=== PATIENT | female | born 1985 | race American Indian/Alaskan Native ===

== ENCOUNTER 2017-08-15 01:20 | Inpatient (IN) | payer BC ==
--- NOTE | 2017-08-15 01:59 | ED PDOC ---
Arrival/HPI - General Chief Complaint: Lower Extremity Problem/Injury Time Seen by Provider: 08/15/17 01:43 Historian: Patient - History of Present Illness Narrative History of Present Illness (Text): 08/15/17 01:52 32 year old female, with no significant past medical history, presents to the emergency department sent by [facility] for diagnosis of blood clot in the right calf. Patient report a history of right calf pain that began 5 days and went in for evaluation. Ultrasound studies on 08/14/17 showed positive results of blood clot. Patient reports a family history of clot bloods. Denies recent travel, any fever, chills, chest pain, shortness of breath , nausea, vomiting, diarrhea, urinary symptoms, back pain, neck pain, headache, dizziness, or any other complaints. Time/Duration: Other (5 days) Symptom Onset: Sudden Symptom Course: Unchanged Activities at Onset: Light Context: Home Past Medical History - Provider Review Nursing Documentation Reviewed: Yes - Psychiatric Hx Substance Use: No Family/Social History - Physician Review Nursing Documentation Reviewed: Yes Family/Social History: Blood Clots Smoking Status: Never Smoked Hx Alcohol Use: No Hx Substance Use: No Allergies/Home Meds Allergies/Adverse Reactions: Allergies No Known Allergies Allergy (Verified 08/15/17 01:33) Home Medications: Home Meds Medication Instructions Recorded Confirmed No Known Home Med 08/15/17 08/15/17 Review of Systems - Physician Review All systems were reviewed & negative as marked: Yes - Review of Systems Constitutional: absent: Fevers, Other (Chills) Respiratory: absent: SOB Cardiovascular: absent: Chest Pain Gastrointestinal: absent: Diarrhea, Nausea, Vomiting Genitourinary Female: absent: Dysuria, Frequency, Hematuria Musculoskeletal: absent: Back Pain, Neck Pain Neurological: absent: Headache, Dizziness Physical Exam Vital Signs Reviewed: Yes Vital Signs Temp Pulse Resp BP Pulse Ox 08/15/17 04:24 76 18 143/88 100 08/15/17 01:34 98.7 F 89 17 182/100 H 98 Temperature: Afebrile Blood Pressure: Hypertensive Pulse: Regular Respiratory Rate: Normal Appearance: Positive for: Well-Appearing, Non-Toxic, Comfortable Pain Distress: None Mental Status: Positive for: Alert and Oriented X 3 - Systems Exam Head: Present: Atraumatic, Normocephalic Pupils: Present: PERRL Extroacular Muscles: Present: EOMI Conjunctiva: Present: Normal Mouth: Present: Moist Mucous Membranes Neck: Present: Normal Range of Motion Respiratory/Chest: Present: Clear to Auscultation, Good Air Exchange. No: Respiratory Distress, Accessory Muscle Use Cardiovascular: Present: Regular Rate and Rhythm, Normal S1, S2. No: Murmurs Abdomen: Present: Normal Bowel Sounds. No: Tenderness, Distention, Peritoneal Signs Back: Present: Normal Inspection Upper Extremity: Present: Normal Inspection. No: Cyanosis, Edema Lower Extremity: Present: CALF TENDERNESS (Tender to palpation on right calf with some discomfort. ). No: Edema Neurological: Present: GCS=15, CN II-XII Intact, Speech Normal Skin: Present: Warm, Dry, Normal Color. No: Rashes Psychiatric: Present: Alert, Oriented x 3, Normal Insight, Normal Concentration Medical Decision Making ED Course and Treatment: 08/15/17 01:52 Impression: 32 year old female presents for evaluation of right DVT diagnosis at [facility] 08/14/16 due to 5 days of right calf pain. Plan: -- EKG -- Labs -- Duplex Lower Extrem Vein US -- Reassess and disposition Progress Notes: 08/15/17 03:43 Duplex Lower Extremity US: DVT of lower right leg EKG shows NSR at 75 BPM with Sinus arrhythmia. Non-specific ST/T changes. Interpreted by me. 08/15/17 03:47 Rectal exam, guaiac negative. - Lab Interpretations Lab Results: 08/15/17 02:05 08/15/17 02:05 Lab Results 08/15/17 02:05: WBC 12.5 H, RBC 4.49, Hgb 8.5 L, Hct 29.9 L, MCV 66.6 L, MCH 18.9 L, MCHC 28.4 L, RDW 17.3 H, Plt Count 320, MPV 10.2 08/15/17 02:05: Sodium 138, Potassium 3.2 L, Chloride 102, Carbon Dioxide 26, Anion Gap 13, BUN 12, Creatinine 0.7, Est GFR ( Amer) > 60, Est GFR (Non- Af Amer) > 60, Random Glucose 91, Calcium 9.4, Total Bilirubin 0.5, AST 32, ALT 29, Alkaline Phosphatase 85, Total Protein 7.8, Albumin 4.2, Globulin 3.7, Albumin/Globulin Ratio 1.1 08/15/17 02:05: PT 11.8, INR 1.03, APTT 23.9 L I have reviewed the lab results: Yes - RAD Interpretation Radiology Orders: 08/15/17 01:56 DUPLEX LOWER EXTRM VEIN BILAT [US] Stat - EKG Interpretation Interpreted by ED Physician: Yes Type: 12 lead EKG - Medication Orders Current Medication Orders: Heparin Sodium/Sodium Chloride (Heparin 57816 Units/250ml 1/2 Normal Saline) 25 ,000 units in 250 mls @ 14.094 mls/hr IV .[id number] PRN; Protocol; 18 UNITS/KG/HR PRN Reason: ADJUST RATE PER PROTOCOL Last Titration: 08/15/17 13:14 Dose: 15.45 units/kg/hr, 12.1 mls/hr Titration Intervention Document 08/15/17 13:14 [facility]Rec: 08/15/17 13:16 [id number]) Titration Intake Titration Intake 50 Cumulative Intake 50 Cumulative Intake (Rx) 50 Waste Amount 0 Container Volume 200 Titration Dosing Titration Dose 15.45 IV Rate 12.1 Intake/Decrease Decreased Cumulative Dose 5000 Discontinued Medications Heparin Sodium (Porcine) (Heparin) 5,000 units IV ONCE STA PRN Reason: Protocol Stop: 08/15/17 03:40 Last Admin: 08/15/17 04:09 Dose: 5,000 units eMAR Start Stop Document 08/15/17 04:09 RD (Rec: 08/15/17 04:09 [facility]) Intravenous Solution Start Date 08/15/17 Start Time 04:09 End Date 08/15/17 End time 04:11 Total Infusion Time 2 Potassium Chloride (K-Dur 20 Meq Er Tab) 20 meq PO STAT STA Stop: 08/15/17 03:25 Last Admin: 08/15/17 03:35 Dose: 20 meq - Scribe Statement The provider has reviewed the documentation as recorded by the Sravan Saunders Provider Scribe Attestation: All medical record entries made by the Sumaibpilar were at my direction and personally dictated by me. I have reviewed the chart and agree that the record accurately reflects my personal performance of the history, physical exam, medical decision making, and the department course for this patient. I have also personally directed, reviewed, and agree with the discharge instructions and disposition. Disposition/Present on Arrival - Present on Arrival Any Indicators Present on Arrival: No History of DVT/PE: No History of Uncontrolled Diabetes: No Urinary Catheter: No History of Decub. Ulcer: No History Surgical Site Infection Following: None - Disposition Have Diagnosis and Disposition been Completed?: Yes Diagnosis: Right leg DVT Disposition: HOSPITALIZED Disposition Time: 03:40 Condition: STABLE
[2017-08-15 02:22] LABS: HEMOGLOBIN 8.5 g/dL (12.0-16.0); MEAN CELL VOLUME 66.6 fl (80.0-105.0); MEAN CORPUSCULAR HEMOGLOBIN 18.9 pg (25.0-35.0); MEAN CORPUSCULAR HGB CONC 28.4 g/dl (31.0-37.0); MEAN PLATELET VOLUME 10.2 fl (7.0-11.0); RBC 4.49 10^6/uL (3.5-6.1); RED CELL DISTRIBUTION WIDTH 17.3 % (11.5-14.5); WHITE BLOOD COUNT 12.5 10^3/ul (4.5-11.0)
[2017-08-15 02:42] LABS: INR 1.03 (0.93-1.08); PARTIAL THROMBOPLASTIN TIME 23.9 Seconds (25.1-36.5); PROTHROMBIN TIME 11.8 SECONDS (9.4-12.5)
[2017-08-15 02:54] LABS: ALB/GLOB RATIO 1.1 (1.1-1.8); ALBUMIN 4.2 g/dL (3.0-4.8); ALT/SGPT 29 U/L (7-56); AST/SGOT 32 U/L (14-36); BLOOD UREA NITROGEN 12 mg/dL (7-21); CALCIUM 9.4 mg/dL (8.4-10.5); GFR AFRICAN-AMERICAN > 60; GFR NON-AFRICAN AMERICAN > 60
[2017-08-15] MEDS ORDERED: Potassium Chloride 20 mEq ER Tab PO STA (03:24)
[2017-08-15] MEDS ORDERED: Heparin25000 units/250ml 1/2NS 25,000 UNITS/250 ML BAG IV PRN (03:39)
[2017-08-15 04:00] VITALS: BMI 29.3
[2017-08-15] MEDS: Heparin 25,000units in 1/2NS /250 ML BAG IV PRN ×2 (04:17→22:25)
--- NOTE | 2017-08-15 10:27 | CARD ---
APPROVED REPORT EKG Measurement Heart [id number] <Conclusion> Normal sinus rhythm with sinus arrhythmia QS V 1 - 2, possible septal MA age unknown No prior ECG
--- NOTE | 2017-08-15 13:42 | US ---
HISTORY: Leg pain and swelling. Evaluate for DVT PHYSICIAN(S): Pieter Coughlin MD. TECHNIQUE: Duplex sonography and color-flow Doppler with graded compression were used to evaluate the deep venous systems of both lower extremities. FINDINGS: There is isolated hypoechoic occlusive thrombus in the right peroneal veins. The right posterior tibial veins, right popliteal vein, right femoral vein, and right common femoral vein are patent and compressible. There is no sonographic evidence for deep venous thrombosis in the visualized segments of left lower extremity IMPRESSION: Isolated right tibial DVT. A followup ultrasound in 7-10 days is recommended
--- NOTE | 2017-08-15 13:44 | CP.PCM.CON ---
History of Present Illness - History of Present Illness History of Present Illness: Abhijeet Livingston D.O. PGY-2, Internal Medicine Resident, Hem/Onc 32 year old female with no PMH who presents for pain in her right leg for 5-6 days. Patient thought it was originally a pulled muscle as the pain was dull and achy, 6/10 at its worst, constant, and presented to [facility] for evaluation and had a doppler which showed a right peroneal vein DVT. 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 Patient's mother, grandmother, two sisters, and all her aunts all have had multiple clotting issues and are on anticoagulation. Patient does not know the etiology at this time. Otherwise patient denies any long trips by car, flights, sick contacts, or any other periods of immobility. Patient denies any smoking history. Review of Systems - Review of Systems All systems: reviewed and no additional remarkable complaints except - Musculoskeletal Musculoskeletal: Other (right leg pain) Past Patient History - Past Social History Smoking Status: Never Smoked - CARDIAC Hx Cardiac Disorders: No - PULMONARY Hx Respiratory Disorders: No - NEUROLOGICAL Hx Neurological Disorder: No - HEENT Hx HEENT Problems: No - ENDOCRINE/METABOLIC Hx Endocrine Disorders: No - HEMATOLOGICAL/ONCOLOGICAL Hx Blood Disorders: No - INTEGUMENTARY Hx Dermatological Problems: No - MUSCULOSKELETAL/RHEUMATOLOGICAL Hx Musculoskeletal Disorders: No Hx Falls: No - GASTROINTESTINAL Hx Gastrointestinal Disorders: No - GENITOURINARY/GYNECOLOGICAL Hx Genitourinary Disorders: No - PSYCHIATRIC Hx Psychophysiologic Disorder: No - SURGICAL HISTORY Hx Surgeries: No Meds Allergies/Adverse Reactions: Allergies Allergy/AdvReac Type Severity Reaction Status Date / Time No Known Allergies Allergy Verified 08/15/17 01:33 - Medications Medications: Current Medications Heparin Sodium/Sodium Chloride (Heparin 37343 Units/250ml 1/2 Normal Saline) 25 ,000 units in 250 mls @ 14.094 mls/hr IV .[id number] PRN; Protocol; 18 UNITS/KG/HR PRN Reason: ADJUST RATE PER PROTOCOL Last Titration: 08/15/17 13:14 Dose: 15.45 units/kg/hr, 12.1 mls/hr Physical Exam - Constitutional Appears: Non-toxic, No Acute Distress - Head Exam Head Exam: ATRAUMATIC, NORMOCEPHALIC - Eye Exam Eye Exam: EOMI, PERRL - ENT Exam ENT Exam: Mucous Membranes Moist - Neck Exam Neck exam: Positive for: Normal Inspection - Respiratory Exam Respiratory Exam: Clear to Auscultation Bilateral. absent: Rhonchi, Wheezes - Cardiovascular Exam Cardiovascular Exam: RRR, +S1, +S2. absent: Gallop, Rubs - GI/Abdominal Exam GI & Abdominal Exam: Normal Bowel Sounds, Soft. absent: Distended, Tenderness - Extremities Exam Additional comments: right calf tenderness, some swelling - Back Exam Back exam: absent: CVA tenderness (L), CVA tenderness (R), paraspinal tenderness - Neurological Exam Neurological exam: Alert, CN II-XII Intact, Oriented x3 - Psychiatric Exam Psychiatric exam: Normal Affect, Normal Mood - Skin Skin Exam: Dry, Warm Results - Vital Signs Recent Vital Signs: Last Vital Signs Temp 97.3 F L 08/15/17 07:30 Pulse 78 08/15/17 07:30 Resp 16 08/15/17 07:30 BP 110/73 08/15/17 07:30 Pulse Ox 98 08/15/17 07:30 - Labs Result Diagrams: 08/15/17 02:05 08/15/17 02:05 Labs: Laboratory Results - last 24 hr 08/15/17 11:07 APTT 133.0 H* Assessment & Plan - Assessment and Plan (Free Text) Assessment: 32 year old female with no PMH who presents for pain in her right leg for 5-6 days and was found to have a right leg DVT Plan: Unprovoked right peroneal mid-calf DVT On heparin gtt Work up for hypercoagulability ordered although will be difficult to interpret given the fact that heparin already Left leg negative IR Dr. Coughlin consulted for evaluation Discussed with patient at length the likelihood of an inherited hypercoagulable state and how she should get in contact with all of her family members in regards to this to try and see if anyone in the family, of the multiple ones with clotting, have been given an official diagnosis Also discussed anticoagulation with patient and how it is likely she will have to be on it for life same as her family members All questions welcomed and answered Will follow Discussed with attending physician - Date & Time Date: 08/15/17 Time: 07:40
--- NOTE | 2017-08-16 01:32 | HP ---
CHIEF COMPLAINT: Lower extremity pain. HISTORY OF PRESENT ILLNESS: Ms. Shiloh Neff is 32-year-old female with nonsignificant past medical history, came to the Emergency Room Department, sent by [facility] for diagnosis of blood clot in the right calf. Patient reports a history of right calf pain that began five days ago, went for evaluation. Ultrasound study done on 08/14/2017 showed positive result for blood clot. Patient reports family history of blood clots. Denies recent travel, fever, chills, smoking and no history of oral contraceptive pills. No shortness of breath, nausea, vomiting, diarrhea, fever, back pain, neck pain, headache, dizziness, or any other complaints. FAMILY HISTORY: Father and mother noncontributory. ALLERGIES: PATIENT IS NOT ALLERGIC WITH ANY MEDICATION. HOME MEDICATIONS: Denied. REVIEW OF SYSTEMS: The patient is seen and examined at the bedside, looking comfortable. No nausea, vomiting, or diarrhea. Still has swelling of the leg. No fever. No chills. No dysuria. No frequency. No hematuria. No back pain. PHYSICAL EXAMINATION: VITAL SIGNS: Temperature 98.7, pulse 89, respiratory rate 17, blood pressure 182/100, pulse oximetry 98. HEENT: Head: Normocephalic, atraumatic. Eyes: PERRLA. Extraocular muscles intact. Conjunctivae clear. Nose: Patent. Mucous membranes moist. NECK: Supple. No carotid bruits. No JVD or thyromegaly. CHEST: Bilaterally symmetrical. HEART: S1, S2 positive. LUNGS: Clear to auscultation. ABDOMEN: Soft. Bowel sounds present. No organomegaly. EXTREMITIES: Tender to palpation of the right calf with some discomfort. NEUROLOGIC: Patient is awake and alert. Moving all four extremities. No focal deficit, oriented x3. LABORATORY DATA: White blood cells 7.5, hemoglobin 8.5, hematocrit 29.9, platelets 320. Sodium 132, potassium 3.2. BUN 12, creatinine 0.7, glucose 91. ASSESSMENT AND PLAN: Ms. Shiloh Neff is a 32-year-old lady with leukocytosis, anemia, hypokalemia, has right calf deep vein thrombosis. Started on heparin drip. We did ultrasound in the hospital according to Dr. Pieter Coughlin, showed a right tibial deep vein thrombosis. A followup ultrasound in 7 to 10 days is recommended. Hematologic consult called with Dr. Schulz to work on that coagulopathy. Patient's mother had blood clot and had multiple pulmonary embolisms and is on chronic anticoagulation. Grandmother, two sisters, and all her aunts all have had multiple clotting issues and are on anticoagulation. Patient denies any long trips by car, flight, sick contact, or any periods of immobility. Workup of hypercoagulability ordered. Left leg negative. Appreciated the deli/bakery associate's input. We will try to get history from the family members. Right now, continue gastric prophylaxis. We will follow up. Suellen Ornelas MD
[2017-08-16 07:59] VITALS: O2SAT 100
--- NOTE | 2017-08-16 13:28 | NM ---
COMPARISON: None TECHNIQUE: 34.0 mCi technetium 99-m DTPA aerosol. 3.4 mCI technetium 99-m MAA administered intravenously. FINDINGS: VENTILATION COMPONENT: Normal. PERFUSION COMPONENT: Heterogeneous distribution of radionuclide. No geographic, segmental, lobar abnormalities apparent on the present examination. IMPRESSION: Low probability ventilation perfusion scan for pulmonary embolism.
--- NOTE | 2017-08-16 15:22 | CP.PCM.PN ---
Subjective - Date & Time of Evaluation Date of Evaluation: 08/16/17 Time of Evaluation: 07:55 - Subjective Subjective: Abhijeet Livingston D.O. PGY-2, Internal Medicine Resident, Hem/Onc 32 year old female with no PMH who presents for pain in her right leg for 5-6 days and was found to have a right tibial DVT. Patient was seen and examined at bedside. Patient states that she is doing ok right now and her leg pain is improved. Mother at bedside relates how she and her mother and another side of the family all have a clotting disorder and are on lifetime anticoagulation. No overnight events. Objective - Vital Signs/Intake and Output Vital Signs (last 24 hours): Temp Pulse Resp BP Pulse Ox 97.8 F 79 18 136/84 100 08/16/17 07:58 08/16/17 07:58 08/16/17 07:58 08/16/17 07:58 08/16/17 07:58 Intake and Output: 08/16/17 08/16/17 06:59 18:59 Intake Total 1490 480 Balance 1490 480 - Medications Medications: Current Medications Apixaban (Eliquis) 10 mg PO BID ELISABETH PRN Reason: Protocol Stop: 08/19/17 10:01 Last Admin: 08/16/17 12:59 Dose: 10 mg - Labs Labs: PT 11.8 SECONDS (9.4-12.5) 08/15/17 02:05 INR 1.03 (0.93-1.08) 08/15/17 02:05 APTT 74.4 Seconds (25.1-36.5) H 08/16/17 06:45 - Constitutional Appears: Non-toxic, No Acute Distress - Head Exam Head Exam: ATRAUMATIC, NORMOCEPHALIC - Eye Exam Eye Exam: EOMI, PERRL - ENT Exam ENT Exam: Mucous Membranes Moist - Neck Exam Neck exam: Positive for: Normal Inspection - Respiratory Exam Respiratory Exam: Clear to Auscultation Bilateral. absent: Rhonchi, Wheezes - Cardiovascular Exam Cardiovascular Exam: RRR, +S1, +S2. absent: Gallop, Rubs - GI/Abdominal Exam GI & Abdominal Exam: Normal Bowel Sounds, Soft. absent: Distended, Tenderness - Extremities Exam Additional comments: right calf tenderness, some swelling - Back Exam Back exam: absent: CVA tenderness (L), CVA tenderness (R), paraspinal tenderness - Neurological Exam Neurological exam: Alert, CN II-XII Intact, Oriented x3 - Psychiatric Exam Psychiatric exam: Normal Affect, Normal Mood - Skin Skin Exam: Dry, Warm Assessment and Plan - Assessment and Plan (Free Text) Assessment: 32 year old female with no PMH who presents for pain in her right leg for 5-6 days and was found to have a right tibial DVT. Plan: Unprovoked right tibial DVT Transitioned from heparin gtt to eliquis Will need 7 days at 10mg BID Discussed with patient Questions welcomed and answered to her satisfaction Family at bedside Discussed with attending physician
--- NOTE | 2017-08-16 18:53 | US ---
HISTORY: R/o malignancy, GN COMPARISON: None. TECHNIQUE: Grayscale imaging was performed. FINDINGS: LIVER: Measures 15.0 cm. There is diffuse increased echogenicity of the liver parenchyma. No mass. No intrahepatic bile duct dilatation. GALLBLADDER: There are no gallstones, wall thickening or pericholecystic fluid. The sonographic Weldon's sign is negative. COMMON BILE DUCT: Measures 3.2 mm. No stones. No dilatation. PANCREAS: Unremarkable as visualized. No mass. No ductal dilatation. RIGHT KIDNEY: Measures 11.2cm. Normal echogenicity. No calculus, mass, or hydronephrosis. LEFT KIDNEY: Measures 11.4cm. Normal echogenicity. No calculus, mass, or hydronephrosis. SPLEEN: Normal in size and contour. No mass. AORTA: No aneurysmal dilatation. IVC: Unremarkable. OTHER FINDINGS: None. IMPRESSION: Fatty liver. No evidence of cholelithiasis.
--- NOTE | 2017-08-16 18:54 | US ---
HISTORY: R/o malignancy COMPARISON: None available. TECHNIQUE: Transabdominal pelvic ultrasound was performed. FINDINGS: UTERUS: Measures 10.0 x 4.3 x 5.3 cm. Anteverted, normal in size and appearance. No fibroid or other mass lesion seen. ENDOMETRIUM: Measures 3.0 mm in diameter. Unremarkable. CERVIX: No cervical abnormality identified. RIGHT OVARY: Measures 3.2 x 2.2 x 2.7 cm. No solid mass. Normal flow. LEFT OVARY: Measures 3.7 x 3.5 x 3.0 cm. No solid mass. Normal flow. There is a 2.3 cm simple cyst in the left ovary. FREE FLUID: No significant free fluid noted. OTHER FINDINGS: None. IMPRESSION: Unremarkable pelvic ultrasound.
[2017-08-16 22:15] VITALS: RESP 16; TEMP 97.4
--- NOTE | 2017-08-17 05:29 | PN ---
DATE: SUBJECTIVE: The patient seen and examined at the bedside, looking comfortable, leg pain is better. No nausea, vomiting or diarrhea. No hematuria or hematochezia. No headache. No dizziness. No chest pain or palpitation. No fever. No chills. PHYSICAL EXAMINATION: VITAL SIGNS: Temperature 97.8, pulse 79, respiratory rate 18, blood pressure 136/84, pulse oximetry 100%. HEENT: Head normocephalic, atraumatic. Eyes, PERRLA. Extraocular movements intact. Conjunctivae clear. Nose patent. Mucous membranes are moist. NECK: Supple. No carotid bruits. No JVD or thyromegaly. CHEST: Bilaterally symmetrical. HEART: S1 and S2 positive. LUNGS: Clear to auscultation. ABDOMEN: Soft. Bowel sounds are present. No organomegaly. EXTREMITIES: No edema. No cyanosis. NEUROLOGIC: The patient is awake and alert. Moving all 4 extremities with no focal deficit. MEDICATIONS: Eliquis 10 mg b.i.d. LABORATORY DATA: White blood cells 12.5, hemoglobin 8.5, hematocrit 29.9, platelets 320. Sodium 138, potassium 3.2, BUN 12, creatinine 0.7. Liver function test are within normal limits. Immunology was still pending. ASSESSMENT AND PLAN: Ms. Shiloh Neff is a 32-year-old lady with leukocytosis, anemia, hypokalemia, replaced. We will do anemia workup. pelvic and abdominal ultrasound unremarkable. No on low probabilities. The patient came with the right leg pain for 5 to 6 days, found to have a right tibial deep venous thrombosis, seen by canning machine operator . . No significant past medical history. The patient was on heparin. Hematology transitioned from heparin to Eliquis. Length of time discussion done with the patient. We will repeat labs. Gastrointestinal and deep venous thrombosis prophylaxis. We will follow up. Suellen Ornelas MD
[2017-08-17 07:16] LABS: HEMOGLOBIN 8.2 g/dL (12.0-16.0); MEAN CELL VOLUME 66.5 fl (80.0-105.0); MEAN CORPUSCULAR HEMOGLOBIN 18.6 pg (25.0-35.0); MEAN CORPUSCULAR HGB CONC 27.9 g/dl (31.0-37.0); MEAN PLATELET VOLUME 10.4 fl (7.0-11.0); RBC 4.42 10^6/uL (3.5-6.1); RED CELL DISTRIBUTION WIDTH 17.3 % (11.5-14.5); WHITE BLOOD COUNT 7.5 10^3/ul (4.5-11.0)
[2017-08-17 07:24] LABS: IRON 17 ug/dL (45-180)
[2017-08-17 07:34] LABS: % IRON SATURATION 4 % (20-55); TOTAL IRON BINDING CAPACITY 432 ug/dL (265-497)
[2017-08-17 07:36] LABS: LDL CHOLESTEROL 97 mg/dL (0-129)
[2017-08-17 07:47] LABS: BLOOD UREA NITROGEN 15 mg/dL (7-21); CALCIUM 9.3 mg/dL (8.4-10.5); GFR AFRICAN-AMERICAN > 60; GFR NON-AFRICAN AMERICAN > 60; HDL CHOLESTEROL 58 mg/dL (29-60)
[2017-08-17 08:25] VITALS: BP 131/80; PULSE 78
--- NOTE | 2017-08-17 10:18 | CON ---
DATE: PULMONARY CONSULTATION REFERRING PHYSICIAN: Suellen Ornelas MD REASON FOR CONSULTATION: DVT. HISTORY OF PRESENT ILLNESS: This is a 32-year-old female without any significant past medical history other than very strong family history of thromboembolic disease, woke up in the morning with right calf tenderness, been having that painful for 5 days. Ultrasound study done on August 14 shows positive calf DVT. She works for the [employer] office. Other than family history, no other risk factor is present. She denies any shortness breath or chest pain. No nausea, no dysuria. PAST MEDICAL HISTORY: There is no history of cardiopulmonary disease or no history of thromboembolic disease. FAMILY HISTORY: Strongly positive for DVT with sister and mother. ALLERGIES: NONE KNOWN. 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 No smoking. No drinking. MEDICATIONS: She is on Eliquis 10 mg twice a day. REVIEW OF SYSTEMS: No headache, no rhinitis, no chest pain, no nausea, no abdominal pain, no dysuria. Has a mild right calf tenderness. PHYSICAL EXAMINATION GENERAL: No acute distress. VITAL SIGNS: Temperature is 98, heart rate is 78, respiratory rate 16, blood pressure 110/73, pulse ox 98% on room air. HEENT: Moist mucous membrane. Crowded airway. NECK: Supple. No JVD. LUNGS: Has a fair airflow with few rhonchi. HEART: S1 and S2. ABDOMEN: Soft, nontender, no organomegaly. EXTREMITIES: There is no edema. NEUROLOGIC: Awake, alert, follows simple commands. LABORATORY DATA: Shows hemoglobin 8.5, hematocrit 29.9, WBC 12.5, platelet count is 320. PTT 74. Sodium 138, potassium 3.2, chloride 102, bicarbonate is 26, BUN 12, creatinine 0.7, glucose 91, calcium 9.4, AST 32, ALT 29, alkaline phosphatase is 85, total protein 7.8, albumin , globulin 3.7, homocysteine 8.0. She has a pelvic ultrasound done which shows unremarkable pelvic ultrasound. Also have abdominal ultrasound done, which shows fatty liver. No evidence of cholelithiasis. VQ scan was also done this morning shows low probability of ventilation-perfusion scan for pulmonary embolism, so venous Doppler of the lower extremity shows right tibial DVT. IMPRESSION AND PLAN: Right calf deep venous thrombosis, which is right tibia with strong history of thromboembolic disease, so deep venous thrombosis is unprovoked. Agree with treating with Eliquis anemia. We will send iron studies, ferritin level, B12, folate and stool guaiac. Thromboembolic workup is in progress. Thank you and we will follow with you. Mookie Espino MD
[2017-08-17 12:09] LABS: FERRITIN 6.5 ng/mL
[2017-08-17 12:39] LABS: FOLATE 5.3 ng/mL
[2017-08-17] MEDS ORDERED: Influenza Vaccine 60 mcg/0.5 mL SYR (4YR UP) IM ONE (16:39)
--- NOTE | 2017-08-18 01:19 | PN ---
DATE: 08/17/2017 PULMONARY PROGRESS NOTE REFERRING PHYSICIAN: Dr. Ornelas. SUBJECTIVE: She is sitting at the side of the bed. Night was unremarkable. Feels better. No headache. No rhinitis. No nausea. No vomiting. Decreased leg pain. OBJECTIVE: GENERAL: In no acute distress. VITAL SIGNS: Temperature is 98, heart rate is 78, respiratory rate is 18, blood pressure 131/80, pulse ox 100% on room air. HEENT: Moist mucous membrane. No ulcer or thrush noted. NECK: Supple. No JVD. LUNGS: Have a fair airflow with a few rhonchi. HEART: S1 and S2. ABDOMEN: Soft, nontender. No organomegaly. EXTREMITIES: No edema. NEUROLOGIC: Awake and alert. Follows simple command. MEDICATIONS: Reviewed. She is on Eliquis 10 mg twice a day. IV iron is given, also 40 mg daily is given. LABORATORY DATA: Shows hemoglobin 8.2, hematocrit 29.4, WBC 7.5, platelet is 345. Sodium 139, potassium 4.3, chloride 108, bicarbonate 24, BUN 15, creatinine 0.7, hemoglobin A1c 5.4, iron is 17, ferritin is 6.5, cholesterol 172, vitamin B12 542, folic acid is 5.3, TSH 2.20. IMPRESSION AND PLAN: Right calf deep vein thrombosis involving tibial artery, family history positive for thromboembolic disease, severe anemia which is iron deficiency, according to patient, she has had a heavy period. She is supposed to be on iron p.o., not taking it. Dr. Ornelas gave her IV iron 1 dose today and placed her on p.o. iron as outpatient. Needs followup hemoglobin and hematocrit. She should decrease Eliquis from 10 to 5 mg after the 10th dose. Follow up with Dr. Ornelas. Thank you and we will follow with you. Mookie Espino MD
== END 2017-08-17 18:36 | disposition home or self-care (01) | DRG 301 ==
LOC: ED 01:20 → ERH 03:44 → 5RNO 05:19
PROVIDERS: ADMIT Internal Medicine; ATTEND Internal Medicine
PROC: 3E033GC Introduction of Other Therapeutic Substance into Peripheral Vein, Percutaneous Approach (ICD-10-PCS; principal; 2017-08-15)
DX: I82.441 Acute embolism and thrombosis of right tibial vein (principal); D50.9 Iron deficiency anemia, unspecified; E87.6 Hypokalemia; N92.0 Excessive and frequent menstruation with regular cycle